=== PATIENT | female | born 1995 | race Caucasian/White ===

== ENCOUNTER 2017-02-17 13:23 | Emergency (ER) | payer MEDICAID ==
[~2017-02-17] VITALS: Ht 160 cm; Wt 85.0 kg
[2017-02-17 15:12] VITALS: BP 120/70
== END 2017-02-17 15:12 | disposition home or self-care (01) ==
LOC: ED 13:23
DX: H66.93 Otitis media, unspecified, bilateral (principal); R10.9 Unspecified abdominal pain; R11.2 Nausea with vomiting, unspecified; Z90.49 Acquired absence of other specified parts of digestive tract
CPT/HCPCS: J1885; J2001; Q0162

== ENCOUNTER 2017-02-20 19:05 | Emergency (ER) | payer MEDICAID ==
[~2017-02-20] VITALS: Ht 157.5 cm; Wt 85.7 kg
[2017-02-20 20:14] VITALS: BP 125/68
== END 2017-02-20 20:14 | disposition home or self-care (01) ==
LOC: ED 19:05
DX: H60.92 Unspecified otitis externa, left ear (principal)
CPT/HCPCS: J0696; J2001

== ENCOUNTER 2017-12-04 15:06 | Inpatient (IN) | payer MEDICAID ==
[~2017-12-04] VITALS: Ht 154.9 cm; Wt 89.0 kg
[2017-12-04 15:17] VITALS: Ht 154.9 cm; Wt 89.0 kg
[2017-12-04 16:26] LABS: microscopic required? YES; urine erythrocyte TRACE (NEGATIVE)
[2017-12-04 16:55] LABS: PLATELET COUNT 302 x10^3mcL (130-400)
[2017-12-04 17:06] LABS: RED CELL DISTRIBUTION WIDTH 16.1 % (11.5-14.5)
[2017-12-04 17:11] LABS: BAND NEUTROPHIL 5 % (0-10); SEGMENTED NEUTROPHILS 83 % (37-75)
[2017-12-04 17:12] LABS: MONOCYTE 4 % (0-7); PLATELET MORPHOLOGY PLATELETS NORMAL; rbc morphology (normal/abnorm) NORMAL (NORMAL)
[2017-12-04 18:18] LABS: CALCIUM 8.6 mg/dL (8.5-10.1); CARBON DIOXIDE 23.6 mmol/L (21-32); CHLORIDE SERUM 99 mmol/L (98-107); CREATININE SERUM 0.8 mg/dL (0.6-1.0); GFR1 > 60 mL/min; GLUCOSE SERUM 111 mg/dL (74-106); POTASSIUM SERUM 3.5 mmol/L (3.5-5.1); SODIUM SERUM 133 mmol/L (136-145)
[2017-12-04 18:23] LABS: ALKALINE PHOSPHATASE 60 U/L (46-116); ALT/SGPT 20 U/L (14-59); AST/SGOT 14 U/L (15-37); BILIRUBIN TOTAL 0.4 mg/dL (0.20-1.00); TOTAL PROTEIN, SERUM 7.5 g/dL (6.4-8.2)
[2017-12-04 19:58] LABS: AMPHETAMINE QUAL UR NONE DETECTED (NEG <=1000)
[2017-12-04 20:04] LABS: MAGNESIUM 1.9 mg/dL (1.8-2.4); PHOSPHOROUS 3.2 mg/dL (2.5-4.9)
[2017-12-04 20:12] LABS: CHOLESTEROL/HDL RATIO 2.6; T3 TOTAL 0.98 ng/mL
[2017-12-04 20:15] LABS: FREE T4 0.99 ng/dL (0.76-1.46); T4(THYROXINE) 10.2 ug/dL (4.7-13.3)
[2017-12-04 20:22] VITALS: BP 130/73
[2017-12-04 20:30] VITALS: BP 130/73
[2017-12-05 04:46] VITALS: BP 116/71
[2017-12-05 06:29] LABS: CALCIUM 7.8 mg/dL (8.5-10.1); CARBON DIOXIDE 20.5 mmol/L (21-32); CHLORIDE SERUM 105 mmol/L (98-107); CREATININE SERUM 0.6 mg/dL (0.6-1.0); GFR1 > 60 mL/min; GLUCOSE SERUM 127 mg/dL (74-106); MAGNESIUM 1.9 mg/dL (1.8-2.4); PHOSPHOROUS 2.3 mg/dL (2.5-4.9); POTASSIUM SERUM 3.3 mmol/L (3.5-5.1); SODIUM SERUM 136 mmol/L (136-145)
[2017-12-05 06:34] LABS: PLATELET COUNT 266 x10^3mcL (130-400)
[2017-12-05 06:59] LABS: RED CELL DISTRIBUTION WIDTH 15.9 % (11.5-14.5)
[2017-12-05 08:56] VITALS: BP 106/70
[2017-12-05 10:49] LABS: BAND NEUTROPHIL 7 % (0-10); BASOPHIL 0 % (0-2); MONOCYTE 8 % (0-7); SEGMENTED NEUTROPHILS 78 % (37-75)
[2017-12-05 10:52] LABS: PLATELET MORPHOLOGY PLATELETS NORMAL; rbc morphology (normal/abnorm) ABNORMAL (NORMAL)
[2017-12-05 13:41] VITALS: BP 100/54
[2017-12-05 17:29] VITALS: BP 107/65
[2017-12-05 20:31] VITALS: BP 108/68
[2017-12-06 06:10] VITALS: BP 112/80
[2017-12-06 06:59] LABS: BASOPHIL % 0.3 % (0-2); PLATELET COUNT 264 x10^3mcL (130-400)
[2017-12-06 07:20] LABS: CALCIUM 8.3 mg/dL (8.5-10.1); CARBON DIOXIDE 22.3 mmol/L (21-32); CHLORIDE SERUM 106 mmol/L (98-107); CREATININE SERUM 0.6 mg/dL (0.6-1.0); GFR1 > 60 mL/min; GLUCOSE SERUM 89 mg/dL (74-106); MAGNESIUM 2.1 mg/dL (1.8-2.4); PHOSPHOROUS 2.4 mg/dL (2.5-4.9); POTASSIUM SERUM 3.6 mmol/L (3.5-5.1); SODIUM SERUM 137 mmol/L (136-145)
[2017-12-06 07:24] LABS: RED CELL DISTRIBUTION WIDTH 16.6 % (11.5-14.5)
[2017-12-06 08:09] VITALS: BP 107/54
[2017-12-06 14:12] VITALS: BP 107/54
== END 2017-12-06 15:03 | disposition home or self-care (01) | DRG 347 ==
LOC: ED 15:06 → DU 19:36
PROVIDERS: Emergency Medicine; Family Medicine
DX: M54.5 Low back pain (principal); N17.0 Acute kidney failure with tubular necrosis; E83.39 Other disorders of phosphorus metabolism; E87.1 Hypo-osmolality and hyponatremia; R65.10 Systemic inflammatory response syndrome (SIRS) of non-infectious origin without acute organ dysfunction; O46.8X1 Other antepartum hemorrhage, first trimester; S39.012D Strain of muscle, fascia and tendon of lower back, subsequent encounter; D64.89 Other specified anemias; O99.011 Anemia complicating pregnancy, first trimester; O25.11 Malnutrition in pregnancy, first trimester; J02.9 Acute pharyngitis, unspecified; E87.6 Hypokalemia; O99.211 Obesity complicating pregnancy, first trimester; E66.9 Obesity, unspecified; Z68.37 Body mass index [BMI] 37.0-37.9, adult; Z3A.01 Less than 8 weeks gestation of pregnancy; X50.9XXD Other and unspecified overexertion or strenuous movements or postures, subsequent encounter
CPT/HCPCS: 83880; 84439; 86308; J0561; J0696; J1956; J2543; J7030